=== PATIENT | male | born 1985 | race Caucasian/White ===

== ENCOUNTER 2020-05-25 06:52 | Outpatient (NON) | payer BC, SELFPAY ==
[2020-05-26 01:59] LABS: SARS-CoV-2 RNA PCR Negative
== END 2020-05-25 06:53 ==
LOC: ANHCOVIDDT 07:07
PROVIDERS: Visit Provider Family Medicine
DX: Z20.828 Contact with and (suspected) exposure to other viral communicable diseases (principal); R09.89 Other specified symptoms and signs involving the circulatory and respiratory systems
CPT/HCPCS: 87635; C9803; U0003

== ENCOUNTER 2022-04-26 10:20 | Emergency (ER) | payer BC, SELFPAY ==
[2022-04-26 10:40] VITALS: BP 209/100; PULSE 106; RESP 18; TEMP 35.8; O2SAT 100
[2022-04-26] MEDS: cloNIDine HCL 0.1 MG TABLET PO (11:05)
--- NOTE | 2022-04-26 11:16 | ED.EXTPRO ---
HPI - Extremity Problem General Chief complaint: Extremity Problem,Nontraumatic Stated complaint: Rt Lower Back Pain,Rt Leg and Ankle Pain Source: patient Mode of arrival: ambulatory History of Present Illness HPI Narrative: This is a 37-year-old male who presented to our urgent care with complaints of pain to his left side of his body due to sciatic nerve pain. Patient has history of having sciatic nerve pain. According to patient in the past he was given steroids with muscle relaxers to relieve his symptoms. Patient blood pressure was also elevated patient notes that he does not have a history of hypertension he believes that his blood pressure is elevated due to his pain. According to patient on Sunday he woke up and when he got out of bed he started to experience pain on his right side he also notes that occasionally with his pain his right ankle swells. Patient notes that he is unable to bear weight due to a sciatic nerve he is also having pain in his right lower back. The patient denies SOB, CP, palpitation, extremity numbness, lightheadedness, dizziness, constipation, diarrhea, chills, or fever. Patient refused 2nd dose clonidine. Patient instructed to closely monitor his blood pressure reading to prevent CVA. Patient blood pressure in the 170's/ 110s Related Data Allergies Allergy/AdvReac Type Severity Reaction Status Date / Time No Known Allergies Allergy Verified 04/26/22 10:31 Review of Systems Review of Systems: A 14 organ system Review of Systems was performed and pertinent positives included in the HPI, otherwise remaining ROS is negative. [facility] Family History Family History Father Family history of thyroid disease Hypertension Other Family history of malignant neoplasm Social History Social History Smoking status: Never smoker Alcohol intake: current Exam Narrative: GENERAL: This is a well-nourished, well-developed patient, in no apparent distress. HEAD: normocephalic, atraumatic. EYES: PERRL. Sclera clear/white. Vision is grossly intact. EARS: External ears normal, auditory canals clear and without drainage, TMs normal without perforation. Hearing grossly intact. NOSE: External nose normal with no obvious nasal discharge, nares without redness, no rhinorrhea. THROAT: Mucous membranes moist, posterior pharynx clear. NECK: Neck supple, non-tender without lymphadenopathy, masses or thyromegaly. CARDIOVASCULAR: Regular rate and rhythm without murmurs, gallops, or rubs. RESPIRATORY: Clear to auscultation. Breath sounds equal bilaterally. No wheezes, rales, or rhonchi. GASTROINTESTINAL: Abdomen soft, non-tender, nondistended. Bowel sounds are active. No hepato-splenomegaly, or palpable masses. No guarding. SKIN: warm, intact with no suspicious lesions or rash, good texture and turgor. NEURO: awake, alert, and oriented to person, place and time. There were no obvious focal neurologic abnormalities. EXTREMITIES: Normal range of motion. No edema. No calf tenderness. Homans test negative. Right ankle swelling. Tenderness to the right lower back Course Course Emergency Course: Patient was given clonidine due to hypertension he does not have a history of hypertension possibly caused by pain he was given dexamethasone and Toradol. He will discharge home with hypertension medication, Medrol pack, Flexeril and hydrocodone. Patient will need to follow up with his primary care physician Level of Care: Express Care Visit Vital Signs Vital signs: Vital Signs Temperature 96.5 F L 04/26/22 10:40 Pulse Rate 106 H 04/26/22 10:40 Respiratory Rate 18 04/26/22 10:40 Blood Pressure 209/100 H 04/26/22 10:40 Pulse Oximetry 100 04/26/22 10:40 Oxygen Delivery Room Air 04/26/22 10:40 Temperature 96.5 F L 04/26/22 10:40 Pulse Rate 106 H 04/26/22 11:26 Respiratory Rate 18 04/26/22
[2022-04-26] MEDS: KETOROLAC (*BKC) 60 MG/2 ML VIAL IM (11:24)
[2022-04-26 11:26] VITALS: BP 172/101; PULSE 106; O2SAT 100
[2022-04-26 11:35] VITALS: BP 172/101
[2022-04-26 11:40] VITALS: BP 172/101
== END 2022-04-26 11:40 | disposition home or self-care (01) ==
PROVIDERS: Emergency Provider Nurse Practitioner
DX: M54.31 Sciatica, right side (principal)
CPT/HCPCS: 96372; 99214; A9270; G0463; J1100; J1885